=== PATIENT | female | born 1950 | race Caucasian/White ===

== ENCOUNTER 2022-06-21 02:37 | Emergency (ER) | payer OTHER | END 2022-06-21 04:55 | disposition home or self-care (01) | LOC: BURERS 02:37 | DX: M62.838 Other muscle spasm (principal); I11.0 Hypertensive heart disease with heart failure; I50.9 Heart failure, unspecified; E11.9 Type 2 diabetes mellitus without complications; E78.5 Hyperlipidemia, unspecified; J44.9 Chronic obstructive pulmonary disease, unspecified | CPT/HCPCS: 36416; 93005 ==